=== PATIENT | male | born 1950 | race Caucasian/White ===

== ENCOUNTER 2019-04-18 22:23 | Emergency (ER) | payer MEDICARE ==
[~2019-04-18] VITALS: Ht 172.2 cm; Wt 127.0 kg
--- NOTE | 2019-04-18 23:01 | ED Integumentary General ---
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 He presents with concern for a small, indolent but persistent leak from his most recent paracentesis site. This is been leaking over the last 1-2 days. He denies any other complaints or concerns at this time and states he otherwise is at his baseline. NO abdominal pain. has been applying pressure dressings without stopping the leak. Allergies and Home Medications Patient Home Medication List Home Medication List Reviewed: Yes Review of Systems Review of Systems Constitutional: see HPI All Other Systems Reviewed Negative Unless Noted: Yes (Negative excepted noted.) Past Qvfetpg-Jnjcau-Fqweuf Hx Past Med/Social Hx: Reviewed Nursing Past Med/Soc Hx Patient Social History Recent Foreign Travel: No Contact w/Someone Who Travel: No Family Medical History Reviewed Nursing Family Hx Physical Exam Vital Signs Capillary Refill : General Appearance: no apparent distress Comments This is an older male who appearing nontoxic and in no acute distress. Head is normocephalic and atraumatic. Neck is supple and nontender. Oropharynx is moist. Lungs are clear to auscultation in all stations. There is normal S1 and S2 without rubs or gallops and capillary refill is appropriate, less than 2 seconds globally. Abdomen is soft and protuberant and mildly distended with a positive fluid wave which patient states is normal for him. There is a paracentesis site in the right midabdomen which is minimally leaking clear ascitic fluid at a very low rate. No surrounding erythema, warmth, swelling or tenderness. Skin is warm and dry without cyanosis,, clubbing or edema. Psychiatrically, the patient demonstrates appropriate mood and affect and is alert. Progress/Results/Core Measures Progress Progress Note : Time: 22:58 Progress Note Dermabond in multiple layers utilized to stop paracentesis site leak with good results. Pressure dressing replaced and patient is not having any further problems. He feels ready to go home. We'll proceed with discharge home at this time. Patient is counseled to follow up very closely with his GI physician in the next 1-2 days understands that if he feels worse instead of better or develops other new symptoms of concern that he should return right away for reevaluation. All questions are answered. Departure Impression Primary Impression: Status post abdominal paracentesis Additional Impression: Encounter for screening for other disorder Disposition: HOME, SELF-CARE Condition: Improved Departure-Patient Inst. Referrals: MELBA OLSEN MD (PCP/Family) Primary Care Physician Add. Discharge Instructions: Follow-up with your GI doctor in the next 1-2 days. Return to the emergency room right away with worsen symptoms or other new concerns. STEVEN ELIZABETH MD Apr 18, 2019 23:01 POS
--- NOTE | 2019-04-18 23:02 | NUR ---
dermabond applied per Dr Pickens, dried with wall oxygen, telfa and silk tape applied.
[2019-04-18 23:08] VITALS: BP 112/59
== END 2019-04-18 23:08 | disposition home or self-care (01) ==
LOC: ER FS 22:26
DX: T85.631A Leakage of intraperitoneal dialysis catheter, initial encounter (principal); Z13.89 Encounter for screening for other disorder

== ENCOUNTER 2020-07-11 11:59 | Emergency (ER) | payer MEDICARE ==
[~2020-07-11] VITALS: Ht 177 cm; Wt 120.0 kg
[2020-07-11 12:26] LABS: HEMATOCRIT 33 % (40-54); HEMOGLOBIN 11.6 G/DL (13.3-17.7); MEAN CORPUSCULAR HEMOGLOBIN 38 PG (25-34); MEAN CORPUSCULAR HGB CONC 35 G/DL (32-36); MEAN CORPUSCULAR VOLUME 107 FL (80-99); MEAN PLATELET VOLUME 9.7 FL (7.4-10.4); NEUTROPHILS % (AUTO) 69 % (42-75); PLATELET COUNT 110 10^3/uL (130-400); WHITE BLOOD COUNT 6.2 10^3/uL (4.3-11.0)
[2020-07-11 12:27] LABS: BASOPHILS % (AUTO) 1 % (0-10); EOSINOPHILS # (AUTO) 0.3 10^3/uL (0.0-0.3); EOSINOPHILS % (AUTO) 4 % (0-10); LYMPHOCYTES # (AUTO) 0.8 X 10^3 (1.0-4.0); LYMPHOCYTES % (AUTO) 13 % (12-44); MONOCYTES # (AUTO) 0.8 X 10^3 (0.0-1.0); MONOCYTES % (AUTO) 13 % (0-12); NEUTROPHILS # (AUTO) 4.3 X 10^3 (1.8-7.8)
[2020-07-11 12:32] LABS: VENTILATOR NO
[2020-07-11 12:33] LABS: ABG BASE EXCESS 4.3 MMOL/L (-2.5-2.5); ABG OXYGEN SATURATION 96 % (94-100); ABG PCO2 32 MMHG (35-45); ABG PH 7.53 (7.37-7.43); ABG PO2 70 MMHG (79-93); ABG TCO2 27.7 MMOL/L (21.0-31.0)
[2020-07-11 12:38] LABS: PATIENT TEMP 35.4
[2020-07-11 12:39] LABS: ALLENS TEST NEGATIVE; INSPIRED O2 ROOM AIR
[2020-07-11 12:52] LABS: INR 1.5 (0.8-1.4); PROTHROMBIN TIME PATIENT 18.8 SEC (12.2-14.7)
[2020-07-11 13:07] LABS: CLARITY,URINE CLEAR; COLOR,URINE YELLOW; GLUCOSE, URINE (UA) NEGATIVE (NEGATIVE); PH,URINE 6.5 (5-9); PROTEIN,URINE NEGATIVE (NEGATIVE)
--- NOTE | 2020-07-11 13:07 | ED General ---
General Chief Complaint: Altered Mental Status Stated Complaint: AMS | HX LIVER FAILURE Nursing Triage Note: PT HAS BEEN MORE ALTERED THAN USUAL. HE HAS LIVER FAILURE AND HAS ELAVATED AMMONIA LEVELS AT TIMES. Nursing Sepsis Screen: No Definite Risk Source of Information: EMS, Family, Old Records Exam Limitations: No Limitations History of Present Illness Date Seen by Provider: Jul 11, 2020 Time Seen by Provider: 12:00 Initial Comments This 70-year-old gentleman is brought to the emergency room via EMS from home due to altered mental status. He is accompanied by his . She reports he started exhibiting symptoms of confusion on July 06. On the evening of uary 6 or 7 he had a fall and bumped into the door frame. He has some skin tears on his forearms as a result. He has had decreased oral intake of food and fluid. He has also had decreased bowel movements which is unusual because he takes lactulose. He has history of cirrhosis and saw his pulp mixer in [place] last Friday. He had a good report with her and diuretics were decreased at that time. This morning he has been minimally responsive and incontinent of urine. Blood pressure is lower than usual. He has not had any of his morning medications due to decreased alertness. Allergies and Home Medications Patient Home Medication List Home Medication List Reviewed: Yes Review of Systems Review of Systems Constitutional: see HPI; No fever EENTM: no symptoms reported Respiratory: no symptoms reported Cardiovascular: see HPI Gastrointestinal: see HPI Genitourinary: see HPI Musculoskeletal: no symptoms reported Skin: see HPI, change in color (Jaundice) Psychiatric/Neurological: See HPI Hematologic/Lymphatic: No Symptoms Reported Immunological/Allergic: no symptoms reported Past Sbhhfgh-Pmtrup-Jdbvkw Hx Past Med/Social Hx: Reviewed Nursing Past Med/Soc Hx Patient Social History Alcohol Use: Denies Use Smoking Status: Former Smoker 2nd Hand Smoke Exposure: No Recent Infectious Disease Expo: No Recent Hopitalizations: No Seasonal Allergies Seasonal Allergies: No Past Medical History Surgeries: Yes Abdominal (TIPS) Respiratory: No Cardiac: Yes Hypertension Neurological: No Genitourinary: No Gastrointestinal: Yes Liver Disease/Jaundice Musculoskeletal: No Endocrine: No HEENT: No Cancer: No Psychosocial: No Integumentary: No Blood Disorders: No Physical Exam Vital Signs Vital Signs - First Documented 07/11/20 12:00 Temp 35.4 Pulse 62 Resp 15 B/P (MAP) 100/82 (88) Pulse Ox 99 O2 Delivery Room Air Capillary Refill : Less Than 3 Seconds Height, Weight, BMI Height: '" Weight: lbs. oz. kg; 38.00 BMI Method: General Appearance: No Apparent Distress, WD/WN, Obese, Other (Minimally res ponsive) HEENT: Normal ENT Inspection, Other (No obvious trauma) Neck: Normal Inspection Respiratory: Lungs Clear, No Accessory Muscle Use, No Respiratory Distress, Decreased Breath Sounds Cardiovascular: Regular Rate, Rhythm, No Edema, No Murmur, Normal Peripheral Pulses Extremity: No Pedal Edema, Other (Multiple skin tears and bruises on the upper extremities) Neurologic/Psychiatric: Other (Responsive to loud voice and painful stimulus. Moans and groans with stimulation. Does not open eyes and does not have any comprehensible speech.) Skin: Warm/Dry, Jaundice Focused Exam Lactate Level 07/11/20 14:00: Lactic Acid Level 2.56*H 07/11/20 16:03: Lactic Acid Level 1.71 Lactic Acid Level Progress/Results/Core Measures Suspected Sepsis Recent Fever Within 48 Hours: Yes Infection Criteria Present: None New/Unexplained Altered Menta: Yes Sepsis Screen: No Definite Risk SIRS Temperature: Pulse: 62 Respiratory Rate: 15 Laboratory Tests 07/11/20 12:11: White Blood Count 6.2 Blood Pressure 100 /82 Mean: 88 07/11/20 14:00: Lactic Acid Level 2.56*H 07/11/20 16:03: Lactic Acid Level 1.71 Laboratory Tests 07/11/20 12:11: Platelet Count 110L 07/11/20 12:12: Creatinine 1.83H, INR Comment 1.5H, Total Bilirubin 3.4H Results/Orders Lab Results Laboratory Tests Test 07/11/20 12:11 07/11/20 12:12 07/11/20 12:34 07/11/20 14:00 Range/Units White Blood Count 6.2 4.3-11.0 10^3/uL Red Blood Count 3.08 L 4.35-5.85 10^6/uL Hemoglobin 11.6 L 13.3-17.7 G/DL Hematocrit 33 L 40-54 % Mean Corpuscular Volume 107 H 80-99 FL Mean Corpuscular Hemoglobin 38 H 25-34 PG Mean Corpuscular Hemoglobin Concent 35 32-36 G/DL Red Cell Distribution Width 14.7 H 10.0-14.5 % Platelet Count 110 L 130-400 10^3/uL Mean Platelet Volume 9.7 7.4-10.4 FL Immature Granulocyte % (Auto) 1 % Neutrophils (%) (Auto) 69 42-75 % Lymphocytes (%) (Auto) 13 12-44 % Monocytes (%) (Auto) 13 H 0-12 % Eosinophils (%) (Auto) 4 0-10 % Basophils (%) (Auto) 1 0-10 % Neutrophils # (Auto) 4.3 1.8-7.8 X 10^3 Lymphocytes # (Auto) 0.8 L 1.0-4.0 X 10^3 Monocytes # (Auto) 0.8 0.0-1.0 X 10^3 Eosinophils # (Auto) 0.3 0.0-0.3 10^3/uL Basophils # (Auto) 0.0 0.0-0.1 10^3/uL Immature Granulocyte # (Auto) 0.1 0.0-0.1 10^3/uL Prothrombin Time 18.8 H 12.2-14.7 SEC INR Comment 1.5 H 0.8-1.4 Blood Gas Puncture Site LT RADIAL Blood Gas Patient Temperature 35.4 Arterial Blood pH 7.53 H 7.37-7.43 Arterial Blood Partial Pressure CO2 32 L 35-45 MMHG Arterial Blood Partial Pressure O2 70 L 79-93 MMHG Arterial Blood HCO3 27 23-27 MMOL/L Arterial Blood Total CO2 27.7 21.0-31.0 MMOL/L Arterial Blood Oxygen Saturation 96 94-100 % Arterial Blood Base Excess 4.3 H -2.5-2.5 MMOL/L Mayank Test NEGATIVE Blood Gas Ventilator Setting NO Blood Gas Inspired Oxygen ROOM AIR Sodium Level 130 L 135-145 MMOL/L Potassium Level 4.6 3.6-5.0 MMOL/L Chloride Level 97 L 98-107 MMOL/L Carbon Dioxide Level 25 21-32 MMOL/L Anion Gap 8 5-14 MMOL/L Blood Urea Nitrogen 40 H 7-18 MG/DL Creatinine 1.83 H 0.60-1.30 MG/DL Estimat Glomerular Filtration Rate 37 BUN/Creatinine Ratio 22 Glucose Level 174 H 70-105 MG/DL Calcium Level 8.5 8.5-10.1 MG/DL Corrected Calcium 9.9 8.5-10.1 MG/DL Magnesium Level 2.2 1.6-2.4 MG/DL Total Bilirubin 3.4 H 0.1-1.0 MG/DL Aspartate Amino Transf (AST/SGOT) 41 H 5-34 U/L Alanine Aminotransferase (ALT/SGPT) 24 0-55 U/L Alkaline Phosphatase 135 40-136 U/L Ammonia 118 H 11-32 UMOL/L Total Protein 4.9 L 6.4-8.2 GM/DL Albumin 2.3 L 3.2-4.5 GM/DL TSH [facility]clean Testing 1.43 0.35-4.94 UIU/ML Urine Color YELLOW Urine Clarity CLEAR Urine pH 6.5 5-9 Urine Specific [place] 1.015 L 1.016-1.022 Urine Protein NEGATIVE NEGATIVE Urine Glucose (UA) NEGATIVE NEGATIVE Urine Ketones NEGATIVE NEGATIVE Urine Nitrite NEGATIVE NEGATIVE Urine Bilirubin NEGATIVE NEGATIVE Urine Urobilinogen 0.2 < = 1.0 MG/DL Urine Leukocyte Esterase NEGATIVE NEGATIVE Urine RBC (Auto) NEGATIVE NEGATIVE Urine RBC RARE /HPF Urine WBC 0-2 /HPF Urine Squamous Epithelial Cells RARE /HPF Urine Crystals NONE /LPF Urine Bacteria NEGATIVE /HPF Urine Casts PRESENT /LPF Urine Hyaline Casts 0-2 H /LPF Urine Mucus NEGATIVE /LPF Urine Culture Indicated NO Lactic Acid Level 2.56 *H 0.50-2.00 MMOL/L Test 07/11/20 16:03 Range/Units Lactic Acid Level 1.71 0.50-2.00 MMOL/L My Orders Orders - JOYA REA MD Ammonia (07/11/20 12:01) Cbc With Automated Diff (07/11/20 12:01) Comprehensive Metabolic Panel (07/11/20 12:01) Ua Culture If Indicated (07/11/20 12:01) Ed Iv/Invasive Line Start (07/11/20 12:01) Magnesium (07/11/20 12:19) Protime With Inr (07/11/20 12:19) Thyroid Analyzer (07/11/20 12:19) Arterial Blood Gas (07/11/20 12:19) Ekg Tracing (07/11/20 12:38) Ct Head/Cervical Spine Wo (07/11/20 12:57) Blood Culture (07/11/20 13:47) Sputum Culture (07/11/20 13:47) Chest 1 View Ap/Pa Only (07/11/20 13:47) Vital Signs Adult Sepsis Patie Q15M (07/11/20 13:47) Remove Rings In Anticipation O (07/11/20 13:47) Lactic Acid Analyzer (07/11/20 13:47) Vital Signs/I&O 07/11/20 17:42 Temp 36.9 Pulse 62 Resp 18 B/P (MAP) 119/49 Pulse Ox 99 O2 Delivery Room Air Capillary Refill : Less Than 3 Seconds Blood Pressure Mean: 88 Progress Note #1: Time: 15:03 Progress Note Work-up thus far has revealed elevated creatinine. The chronicity of his renal failure is uncertain as we do not have prior labs. The ammonia level is a send out lab and is still pending. Patient continues to have significantly altered mental status. CT of the head and cervical spine was negative for acute injury. Patient will need to be admitted as he cannot return home in this condition. He receives his specialty care at [facility] and his has requested transfer there for continuity of care. I agree transfer to [facility] is the most appropriate course of action and necessary for continuity of care. I have placed a call to the transfer line and am awaiting a call back. In the meantime patient has received a liter of IV normal saline. Progress Note #2: Progress Note Ammonia was significantly elevated. Transfer was accepted by Dr. Alicea. No additional therapies where requested prior to transfer. ECG Initial ECG Impression Date: Jul 11, 2020 Initial ECG Impression Time: 12:27 Initial ECG Rate: 60 Initial ECG Rhythm: Normal Sinus Initial ECG Intervals: Normal Initial ECG Impression: Normal Comment Normal sinus rhythm with no ST elevation or depression. No abnormal intervals or axis deviation. Diagnostic Imaging Diagonstic Imaging: CT Plain Films/CT/US/NM/MRI: c-spine, head Comments NAME: SAMANTHA WEATHERS [facility] REC#: [id number] PT STATUS: REG ER : 1950 PHYSICIAN: JOYA REA MD ADMIT DATE: 07/11/20/ER FS Draft Date of Exam:07/11/20 CT HEAD/CERVICAL SPINE WO PROCEDURE: CT head and CT cervical spine without contrast. TECHNIQUE: Multiple contiguous axial images were obtained through the brain and cervical spine without the use of intravenous contrast. Sagittal and coronal reformations through the cervical spine were then performed. Auto Exposure Controls were utilized during the CT exam to meet ALARA standards for radiation dose reduction. INDICATION: Fall, altered mental status. COMPARISON: I have no comparison. FINDINGS: HEAD: There is no intracerebral hemorrhage. There is no hydrocephalus. There is no focal or generalized cerebral edema and there are no findings of an elevation of the intracranial pressures. There is mild generalized cerebral cortical atrophy without hydrocephalus. The basilar cisterns are patent. There is no sulcal effacement. The orbits, sinuses, and calvarium appear nonacute. CERVICAL SPINE: The central skull base is intact and the craniocervical relationship is maintained. The cervical body heights are within normal limits and the alignment is anatomic. There are degenerative changes to the discs, endplates, and facets throughout the cervical spine without high-grade canal stenosis. No cervical fracture, paravertebral hemorrhage, or traumatic malalignment is found. The visualized thoracic inlet and pulmonary apices reveal partial visualization of right apical pleural fluid. A dedicated upright chest x-ray would be recommended. IMPRESSION: CT HEAD: There is some mild atrophy but no hemorrhage or acute finding. CT CERVICAL SPINE: Degenerative but no fracture or traumatic malalignment. Likely partially visualized right apical pleural fluid with a chest x-ray recommended. Dictated on workstation # [id number] Dict: 07/11/20 1328 Trans: 07/11/20 1339 [id number] Interpreted by: REMIGIO HERNANDEZ Reviewed: Reviewed by Me Diagonstic Imaging: Xray Plain Films/CT/US/NM/MRI: chest Comments NAME: SAMANTHA WEATHERS [facility] REC#: [id number] PT STATUS: REG ER : 1950 PHYSICIAN: JOYA REA MD ADMIT DATE: 07/11/20/ER FS Draft Date of Exam:07/11/20 CHEST 1 VIEW AP/PA ONLY INDICATION: Sepsis Frontal chest obtained at 149 p.m. There is no prior study for comparison. Heart is normal in size. There is central vascular congestion. There is some mild right basilar infiltrate versus atelectasis. There is no pneumothorax. IMPRESSION: Poor inspiration. There is central vascular congestion with some right basilar atelectatic change versus infiltrate. Dictated on workstation # [id number] Dict: 07/11/20 1441 Trans: 07/11/20 1447 [facility] [id number] Interpreted by: YOJANA SPENCER MD Reviewed: Reviewed by Me Departure Impression Primary Impression: Hepatic encephalopathy Additional Impressions: Cirrhosis Qualified Codes: K74.60 - Unspecified cirrhosis of liver Renal insufficiency Disposition: XFER SHT-TRM HOSP Condition: Stable Transfer Transfer Reason: Exceeds level of care Time Spoke to Accepting Phy: 16:35 Transfer Progress Notes Transfer accepted by Dr. Alicea at [facility]. Transfer Facility: [facility] Method of Transfer: EMS Departure-Patient Inst. Referrals: MELBA OLSEN MD (PCP/Family) Primary Care Physician JOYA REA MD Jul 11, 2020 13:07
[2020-07-11 13:08] LABS: BACTERIA,URINE NEGATIVE /HPF; BILIRUBIN,URINE NEGATIVE (NEGATIVE); HYALINE CASTS, URINE 0-2 /LPF; KETONES,URINE NEGATIVE (NEGATIVE); LEUKOCYTE ESTERASE ,URINE NEGATIVE (NEGATIVE); NITRITE,URINE NEGATIVE (NEGATIVE); RBC,URINE RARE /HPF; SQUAMOUS EPITHELIAL CELL,UR RARE /HPF; WBC,URINE 0-2 /HPF
[2020-07-11 13:21] LABS: POTASSIUM 4.6 MMOL/L (3.6-5.0)
[2020-07-11 13:22] LABS: ALBUMIN 2.3 GM/DL (3.2-4.5); BILIRUBIN,TOTAL 3.4 MG/DL (0.1-1.0); CALCIUM 8.5 MG/DL (8.5-10.1); CREATININE SERUM 1.83 MG/DL (0.60-1.30); MAGNESIUM 2.2 MG/DL (1.6-2.4); TOTAL PROTEIN 4.9 GM/DL (6.4-8.2)
--- NOTE | 2020-07-11 13:39 | Diagnostic Imaging Report ---
PROCEDURE: CT head and CT cervical spine without contrast. TECHNIQUE: Multiple contiguous axial images were obtained through the brain and cervical spine without the use of intravenous contrast. Sagittal and coronal reformations through the cervical spine were then performed. Auto Exposure Controls were utilized during the CT exam to meet ALARA standards for radiation dose reduction. INDICATION: Fall, altered mental status. COMPARISON: I have no comparison. FINDINGS: HEAD: There is no intracerebral hemorrhage. There is no hydrocephalus. There is no focal or generalized cerebral edema and there are no findings of an elevation of the intracranial pressures. There is mild generalized cerebral cortical atrophy without hydrocephalus. The basilar cisterns are patent. There is no sulcal effacement. The orbits, sinuses, and calvarium appear nonacute. CERVICAL SPINE: The central skull base is intact and the craniocervical relationship is maintained. The cervical body heights are within normal limits and the alignment is anatomic. There are degenerative changes to the discs, endplates, and facets throughout the cervical spine without high-grade canal stenosis. No cervical fracture, paravertebral hemorrhage, or traumatic malalignment is found. The visualized thoracic inlet and pulmonary apices reveal partial visualization of right apical pleural fluid. A dedicated upright chest x-ray would be recommended. IMPRESSION: CT HEAD: There is some mild atrophy but no hemorrhage or acute finding. CT CERVICAL SPINE: Degenerative but no fracture or traumatic malalignment. Likely partially visualized right apical pleural fluid with a chest x-ray recommended. Dictated by: Dictated on workstation # [id number]
--- NOTE | 2020-07-11 14:47 | Diagnostic Imaging Report ---
INDICATION: Sepsis Frontal chest obtained at 149 p.m. There is no prior study for comparison. Heart is normal in size. There is central vascular congestion. There is some mild right basilar infiltrate versus atelectasis. There is no pneumothorax. IMPRESSION: Poor inspiration. There is central vascular congestion with some right basilar atelectatic change versus infiltrate. Dictated by: Dictated on workstation # [id number]
[2020-07-11 15:53] LABS: TSH (THYROID ANALYZER) 1.43 UIU/ML (0.35-4.94)
[2020-07-11 17:42] VITALS: BP 119/49
== END 2020-07-11 17:44 | disposition short-term general hospital (02) ==
LOC: EDUNIT# 11:59 → ER FS 12:00
DX: K72.90 Hepatic failure, unspecified without coma (principal); K74.60 Unspecified cirrhosis of liver; N28.9 Disorder of kidney and ureter, unspecified; E66.9 Obesity, unspecified; Z68.38 Body mass index [BMI] 38.0-38.9, adult; Z87.891 Personal history of nicotine dependence
CPT/HCPCS: 36415; 51702; 70450; 71045; 72125; 80053; 81000; 82140; 82805; 83605; 83735; 84443; 85025; 85610; 87040